=== PATIENT | female | born 1960 | race Caucasian/White ===

== ENCOUNTER 2019-07-22 20:19 | Emergency (ER) | payer MEDICAID ==
[~2019-07-22] VITALS: Ht 147.3 cm; Wt 81.8 kg
[2019-07-22] MEDS ORDERED: LISI-662 PO (21:05)
[2019-07-22] MEDS ORDERED: ASPI81TA40 PO (21:05)
[2019-07-22] MEDS ORDERED: METF1000 PO (21:05)
[2019-07-22] MEDS ORDERED: GLYB2.5 PO (21:05)
[2019-07-22] MEDS ORDERED: ATOR20TA86 PO (21:05)
[2019-07-22 21:06] LABS: GLUCOSE,POINT OF CARE 105 MG/DL (70-110)
[2019-07-22 23:12] VITALS: BP 122/78
== END 2019-07-22 23:48 | disposition home or self-care (01) ==
LOC: EMS 20:21
DX: G44.209 Tension-type headache, unspecified, not intractable (principal); R20.0 Anesthesia of skin; E11.9 Type 2 diabetes mellitus without complications; E78.00 Pure hypercholesterolemia, unspecified; I10 Essential (primary) hypertension; F17.210 Nicotine dependence, cigarettes, uncomplicated; Z79.899 Other long term (current) drug therapy; Z88.2 Allergy status to sulfonamides; Z79.84 Long term (current) use of oral hypoglycemic drugs
CPT/HCPCS: 70450